=== PATIENT | female | born 1965 | race Caucasian/White ===

== ENCOUNTER → 2017-08-29 | Outpatient (CLI) | payer BC ==
[~2017-08-29] MED LIST: GADOBUTROL 10 MMOL/10 ML PFS ONE
== END | disposition home or self-care (01) ==
LOC: CFH 08:51
PROVIDERS: ATTEND Family Medicine
DX: R51 Headache (principal)
CPT/HCPCS: 70553; A9585

== ENCOUNTER → 2018-03-08 | Outpatient (CLI) | payer BC | END | disposition home or self-care (01) | LOC: CFH 08:31 | PROVIDERS: ATTEND Registered Nurse | DX: M47.892 Other spondylosis, cervical region (principal) | CPT/HCPCS: 72050 ==

== ENCOUNTER → 2018-05-24 | Day surgery (SDC) | payer BC ==
[~2018-05-24] VITALS: Ht 177.8 cm; Wt 99.8 kg
[~2018-05-24] MED LIST changes: +ACETAMINOPHEN 650 MG/20.3 ML UDC ONE; +ALBUTEROL SULFATE 2.5 MG/3 ML NPPB PRN; +BUPIVACAINE/PF-EPI 0.5% 1:200K ONE; +CEFOTETAN PMX 1GM/50ML 50 ML IV ONE; +CEFOTETAN PMX 1GM/50ML 50 ML ONE; +DIAZEPAM 5 MG/ML, 2ML IVPush PRN; +FAMOTIDINE 20 MG/2 ML IVP ONE; +FAMOTIDINE 20 MG/2 ML ONE; +FENTANYL PF 100 MCG/2ML ONE; +FENTANYL PF 250 MCG/5ML ONE; +FLUO10CA13 PO; +GABA300C10 PO; -GADOBUTROL 10 MMOL/10 ML PFS ONE; +GLYCOPYRROLATE 0.2MG/1ML, 5ML ONE; +HYDROmorphone 1 MG/ML, 1ML IV PRN; +HYDROmorphone 2 MG/ML, 1ML IVPush PRN; +KETOROLAC 30 MG/1 ML IVPush PRN; +KETOROLAC 30 MG/1 ML ONE; +LABETALOL 5MG/ML, 20ML IV PRN; +LORazepam 2 MG/ML, 1ML IVPush PRN; +MEPERIDINE/PF 25MG/0.5ML IVPush PRN; +METOCLOPRAMIDE 5 MG/ML, 2ML IV PRN; +METOPROLOL 1 MG/ML, 5ML IV PRN; +MIDAZOLAM 1 MG/ML, 2ML ONE; +MONT4GRA PO; +MORPHINE SULFATE 4 MG/ML, 1ML IVPush PRN; +MORPHINE SULFATE 4 MG/ML, 1ML ONE; +NEOSTIGMINE 1 MG/ML, 10ML ONE; +OMEP10CA4 PO; +ONDANSETRON 2MG/ML, 2ML IVPush ONE; +ONDANSETRON 2MG/ML, 2ML IVPush PRN; +ONDANSETRON 2MG/ML, 2ML ONE; +OXYcodone 5 MG/5 ML ORAL.SOL UDC ONE; +OXYcodone 5 MG/5 ML ORAL.SOL UDC PO PRN; +PROPOFOL 10 MG/ML, 20ML ONE; +ROCURONIUM 10MG/ML,5ML ONE; +SCOPOLAMINE PATCH, 1.5MG PATCH.TD72 TD PRN; +SODIUM CHLORIDE 0.9% 1,000 ML IV ONE; +SODIUM CHLORIDE FLUSH 10ML SYR IVF ONE; +SUCCINYLCHOLINE 20 MG/ML, 10ML ONE; +hydrALAzine 20 MG/ML, 1ML IV PRN
[2018-05-24 04:12] VITALS: BP 136/70
[2018-05-24 05:06] LABS: BASOPHILS # (AUTO) 0.03 x10^3/uL (0-0.1); BASOPHILS % (AUTO) 1 % (0-1); EOSINOPHILS # (AUTO) 0.28 x10^3/uL (0-0.4); EOSINOPHILS % (AUTO) 4 % (1-7); LYMPHOCYTES # (AUTO) 2.43 x10^3/uL (1-3.4); LYMPHOCYTES % (AUTO) 34 % (22-44); MD NO; MEAN CORPUSCULAR HEMOGLOBIN 28.7 pg (27.0-34.8); MEAN CORPUSCULAR HGB CONC 34.4 g/dL (32.4-35.8); MEAN CORPUSCULAR VOLUME 83.5 fL (80-100); MEAN PLATELET VOLUME 7.5 fL (7.4-10.4); MONOCYTES # (AUTO) 0.58 x10^3/uL (0.2-0.8); MONOCYTES % (AUTO) 8 % (2-9); NEUTROPHILS # (AUTO) 3.74 x10^3/uL (1.8-6.8); NEUTROPHILS % (AUTO) 53 % (42-75); PLATELET COUNT 294 x10^3/uL (130-400); RED BLOOD COUNT 4.97 x10^6/uL (3.82-5.3); RED CELL DISTRIBUTION WIDTH 12.8 % (9.6-15.2)
[2018-05-24 05:14] LABS: MICROSCOPIC AUTO
[2018-05-24] MEDS: MORPHINE SULFATE 4 MG/ML, 1ML IVPush PRN ×2 (05:15→05:59)
[2018-05-24 05:20] LABS: CULTURE INDICATED? YES
[2018-05-24 05:23] LABS: ALANINE AMINOTRANSFERASE 44 U/L (12-78); ALBUMIN 4.3 g/dL (3.4-5.0); ANION GAP 10 mmol/L (5-15); CALCIUM 9.2 mg/dL (8.5-10.1); CHLORIDE 107 mmol/L (98-107); CREATININE 0.91 mg/dL (0.55-1.02)
[2018-05-24 05:27] LABS: ALKALINE PHOSPHATASE 101 U/L (45-117); BILIRUBIN,TOTAL 1.1 mg/dL (0.2-1.0); TROPONIN I < 0.015 ng/mL (0.000-0.045)
[2018-05-24] MEDS: FENTANYL PF 100 MCG/2ML IV PRN ×2 (07:49→07:57)
== END | disposition home or self-care (01) ==
LOC: OR 06:10 → UNDOADMIN 06:17 → OR 06:17 → EDIP 06:17 → UNDODISIN 13:21
PROVIDERS: ATTEND Surgery
DX: K80.12 Calculus of gallbladder with acute and chronic cholecystitis without obstruction (principal); K21.9 Gastro-esophageal reflux disease without esophagitis; F32.9 Major depressive disorder, single episode, unspecified; Z98.890 Other specified postprocedural states; Z87.891 Personal history of nicotine dependence
CPT/HCPCS: 36415; 47562; 71045; 76700; 80053; 81001; 83690; 83880; 84484; 85025; 87086; 88304; 93005; 96374; 96375; 96376; 99285; J0330; J1885; J2250; J2405; J2704; J2710; J3010; J3490; J7030